=== PATIENT | female | born 2000 | race Caucasian/White ===

== ENCOUNTER 2022-03-23 14:25 | Emergency (ER) | payer MEDICAID, SELFPAY ==
--- NOTE | ~2022-03-23 | XR_ITS ---
EXAMINATION: XR CHEST CLINICAL INFORMATION: Chest pain. Shortness of breath. COMPARISON: None TECHNIQUE: 2 views of the chest were obtained. FINDINGS: No significant abnormality is noted involving the heart, lungs, mediastinum, bony thorax or soft tissues. XR/XR chest 2V IMPRESSION: Unremarkable examination.
[2022-03-23 15:20] VITALS: BP 129/80; PULSE 123; RESP 20; TEMP 36.8; O2SAT 98; BMI 32.9
--- NOTE | 2022-03-23 15:20 | ECG_ITS ---
Test Reason : tacycadic Blood Pressure : / mmHG Vent. Rate : 130 BPM Atrial Rate : 130 BPM P-R Int : 130 ms QRS Dur : 076 ms QT Int : 302 ms P-R-T Axes : 054 013 000 degrees QTc Int : 444 ms Sinus tachycardia Possible Left atrial enlargement Borderline ECG No previous ECGs available Referred By: María Hernandez Electronically Signed By:HENRY GUNN
--- NOTE | 2022-03-23 15:21 | ED_ITS ---
HPI - URI/Sore Throat General Chief Complaint: Upper Respiratory Symptoms <María Hernandez CNP - Last Filed: 03/23/22 18:01> Stated Complaint: chest pain <María Hernandez CNP - Last Filed: 03/23/22 18:01> Time Seen by Provider: 03/23/22 17:52 <María Hernandez CNP - Last Filed: 03/23/22 18:01> Source: patient <Aissatou Prather MD - Last Filed: 03/23/22 21:55> Mode of arrival: ambulatory <Aissatou Prather MD - Last Filed: 03/23/22 21:55> Limitations: no limitations <Aissatou Prather MD - Last Filed: 03/23/22 21:55> History of Present Illness HPI Narrative: Patient comes in the emergency room complaining of fatigue, cough and reproducible chest discomfort to cough and deep inspiration, fevers with T max 101. Symptoms have been present for 4-5 days. <Aissatou Prather MD - Last Filed: 03/23/22 21:55> Related Data Home Medications: Previous Rx's Medication Instructions Recorded benzonatate 100 mg capsule 100 mg PO TID PRN cough #14 caps 03/23/22 <María Hernandez CNP - Last Filed: 03/23/22 18:01> Allergies/Adverse Reactions: Allergies Allergy/AdvReac Type Severity Reaction Status Date / Time No Known Allergies Allergy Unverified 12/03/19 17:21 <María Hernandez CNP - Last Filed: 03/23/22 18:01> Review of Systems Review of Systems: Constitutional : No Weight loss, complaining of fever and chills, No Night Sweats, No Fatigue, No Malaise ENT/Mouth : No Hearing loss, No Ear Pain, No Nasal Congestion, No Sinus Pain, No Hoarseness, complaining of sore throat, No Rhinorrhea, No Swallowing Difficulty Eyes: No Eye Pain, No Swelling, No Redness, No Foreign Body, No Discharge, No Vision Changes Cardiovascular : No Chest Pain, No SOB, No Dyspnea on Exertion, No Orthopnea, No Edema, No Palpitations Respiratory : Complaining of Cough, No Sputum, No Wheezing, No Smoke Exposure, No Dyspnea Gastrointestinal : No Nausea, No Vomiting, No Diarrhea, No Constipation, No abdominal Pain, No Hematochezia, No Melena Genitourinary : no irregular bleeding, No Dysuria, No Urinary Frequency, No Hematuria, No Urinary Incontinence, No Urgency, No Flank Pain, No Urinary Flow Changes, No Hesitancy Musculoskeletal : No joint pain, No Myalgias, No Joint Swelling Skin : No Skin Lesions, No rash Neuro : No Weakness, No Numbness, No Paresthesias, No Loss of Consciousness, No Dizziness, No Headache Psych : No Anxiety/Panic, No Depression, No SI/HI/AH/VH, No Social Issues, Heme/Lymph: No Bruising, No Bleeding,No Lymphadenopathy Endocrine : No Polyuria, No Polydipsia, No Temperature Intolerance <Aissatou Prather MD - Last Filed: 03/23/22 21:55> [facility] Social History Social History: Social History Advance Directives: No Advance Directives Information Provided: Yes <María Hernandez CNP - Last Filed: 03/23/22 18:01> Physical Exam Vital Signs: Vital Signs: Last Vital Signs Temp 97.7 F 03/23/22 17:52 Pulse 119 H 03/23/22 17:52 Resp 20 03/23/22 17:52 BP 123/85 03/23/22 17:52 Pulse Ox 98 03/23/22 17:52 O2 Del Method 03/23/22 17:52 BMI result Body Mass Index 32.9 <María Hernandez CNP - Last Filed: 03/23/22 18:01> Vital Signs: Last Vital Signs Temp 97.7 F 03/23/22 17:52 Pulse 119 H 03/23/22 17:52 Resp 20 03/23/22 17:52 BP 123/85 03/23/22 17:52 Pulse Ox 98 03/23/22 17:52 O2 Del Method 03/23/22 17:52 BMI result Body Mass Index 32.9 <Aissatou Prather MD - Last Filed: 03/23/22 21:55> Const: Other: Appearance: Alert. Oriented X3. No acute distress. Eyes: Pupils equal, round and reactive to light. ENT: Pharynx Mildly erythematous, no exudates, no abscesses Neck: Normal inspection. Neck supple. No lymph nodes noted. No crepitus CVS: Normal heart rate and rhythm. Pulses normal. Normal S1 and S2 Respiratory: No respiratory distress. Breath sounds normal. No Wheezing. No rales Abdomen: Soft and nontender. No rigidity. No distention. Skin: Skin warm and dry. Normal skin color. Normal skin turgor. Extremities: No lower extremity edema. No Lacerations. No Rash Neuro: Oriented X 3. No motor deficit. No sensory deficit. Moving all extremities. No slurred speech. CN 2 through 12 grossly intact Psych: calm, cooperative, normal affect <Aissatou Prather MD - Last Filed: 03/23/22 21:55> Course Course Course Narrative: This is an RME: Additional HPI, ROS, PE not included below will be deferred to primary provider. Patient is a 21-year-old female who presents to the emergency department for evaluation of upper respiratory symptoms. She reports Symptom onset was 4 days ago. Initially with fatigue, followed by cough and reproducible chest discomfort to cough and deep inspiration, fevers with T max 101. She reports chest pain described as heaviness, like someone is sitting on her chest, with shortness of breath and difficulty breathing. PE: LSCTA, tachycardia 120 Plan: Labs, EKG, chest x-ray, viral testing. 17:55 - remains tachycardic, no respiratory distress continues to report heaviness to chest, described as intense pressure, that she reports is worsening since arrival. D-dimer added for further evaluation for PE, though I have a lower suspicion for this, suspect tachycardia is secondary to viral upper respiratory infection. <María Hernandez CNP - Last Filed: 03/23/22 18:01> This is an RME: Additional HPI, ROS, PE not included below will be deferred to primary provider. Patient is a 21-year-old female who presents to the emergency department for evaluation of upper respiratory symptoms. She reports Symptom onset was 4 days ago. Initially with fatigue, followed by cough and reproducible chest discomfort to cough and deep inspiration, fevers with T max 101. She reports chest pain described as heaviness, like someone is sitting on her chest, with shortness of breath and difficulty breathing. PE: LSCTA, tachycardia 120 Plan: Labs, EKG, chest x-ray, viral testing. 17:55 - remains tachycardic, no respiratory distress continues to report heaviness to chest, described as intense pressure, that she reports is worsening since arrival. D-dimer added for further evaluation for PE, though I have a lower suspicion for this, suspect tachycardia is secondary to viral upper respiratory infection. Patient receive IV fluids <Aissatou Prather MD - Last Filed: 03/23/22 21:55> Medical Decision Making Medical Decision Making [facility] Narrative: Patient tested negative for COVID and influenza. Troponin negative, D- dimer negative. Chest x-ray negative. Patient likely having a viral infection. Patient given IV fluids, Decadron p.o., viscous lidocaine. <Aissatou Prather MD - Last Filed: 03/23/22 21:55> Differential Diagnosis Differential Diagnoses: The differential diagnosis associated with the presentation includes (COVID, influenza, bronchitis, pneumonia) <Aissatou Prather MD - Last Filed: 03/23/22 21:55> Lab Data [facility] Lab Attestation statement: I reviewed the patient's lab results. <Aissatou Prather MD - Last Filed: 03/23/22 21:55> Result Diagrams: 03/23/22 15:40 03/23/22 15:40 <María Hernandez CNP - Last Filed: 03/23/22 18:01> Labs: Lab Results 03/23/22 03/23/22 03/23/22 Range/Units 15:35 15:35 15:40 WBC 13.5 H (4.8-10.8) X10*3/uL RBC 5.17 (4.20-5.50) X10*6/uL Hgb 13.8 (12.0-16.0) g/dl Hct 41.9 (37.0-47.0) % MCV 81.0 (80.0-98.0) fL MCH 26.7 L (27.0-33.0) pg MCHC 32.9 (31.0-35.0) g/dl RDW 12.8 (11.0-16.0) % Plt Count 241 (160-400) X10*3/uL MPV 10.9 (9.4-12.3) fL Immature Gran % (Auto) 0.2 (0.0-0.4) % Neut % (Auto) 73.8 H (45-73) % Lymph % (Auto) 15.9 L (20-40) % [place] % (Auto) 9.5 (2-11) % Eos % (Auto) 0.5 (0-4) % Baso % (Auto) 0.1 (0-2) % Lymph # (Auto) 2.2 (1.2-4.9) X10*3/uL [place] # (Auto) 1.3 H (0.1-1.2) X10*3/uL Eos # (Auto) 0.1 (0.0-0.4) X10*3/uL Baso # (Auto) 0.0 (0.0-0.2) X10*3/uL Abs Immat Gran (auto) 0.03 (0.00-0.03) X10*3/uL Absolute Neuts (auto) 10.0 H (2.0-8.3) x10*3/uL Absolute Nucleated RBC 0.000 (0.0-0.012) X10*3/uL Nucleated RBC % (auto) 0.0 (0.0-0.2) /100WBC PT (10.0-13.1) SEC INR (0.9-1.1) D-Dimer High Sensitivty NG/ML Sodium (135-145) mmol/L Potassium (3.3-5.1) mmol/L Chloride (96-108) mmol/L Carbon Dioxide (22-29) mmol/L Anion Gap (12-20) BUN (9-16) mg/dL Creatinine (0.5-1.4) mg/dL Estim Creat Clear Calc Estimated GFR Random Glucose (60-115) mg/dL Calcium (8.4-10.2) mg/dL Total Bilirubin (0.0-1.0) mg/dL AST (5-31) U/L ALT (0-31) U/L Alkaline Phosphatase (39-117) U/L Troponin I High Sens (<3.5-17.0) ng/L Total Protein (6.5-8.0) g/dL Albumin (3.5-5.0) g/dL COVID-19 ([facility]) Negative (Negative) COVID-19 Clin Com See Note Influenza Type A ([facility]) Negative (Negative) Influenza Type B ([facility]) Negative (Negative) Influenza A & B Note See Note 0103/23/22 03/23/22 Range/Units 15:40 15:40 15:40 WBC (4.8-10.8) X10*3/uL RBC (4.20-5.50) X10*6/uL Hgb (12.0-16.0) g/dl Hct (37.0-47.0) % MCV (80.0-98.0) fL MCH (27.0-33.0) pg MCHC (31.0-35.0) g/dl RDW (11.0-16.0) % Plt Count (160-400) X10*3/uL MPV (9.4-12.3) fL Immature Gran % (Auto) (0.0-0.4) % Neut % (Auto) (45-73) % Lymph % (Auto) (20-40) % [place] % (Auto) (2-11) % Eos % (Auto) (0-4) % Baso % (Auto) (0-2) % Lymph # (Auto) (1.2-4.9) X10*3/uL [place] # (Auto) (0.1-1.2) X10*3/uL Eos # (Auto) (0.0-0.4) X10*3/uL Baso # (Auto) (0.0-0.2) X10*3/uL Abs Immat Gran (auto) (0.00-0.03) X10*3/uL Absolute Neuts (auto) (2.0-8.3) x10*3/uL Absolute Nucleated RBC (0.0-0.012) X10*3/uL Nucleated RBC % (auto) (0.0-0.2) /100WBC PT 13.7 H (10.0-13.1) SEC INR 1.2 H (0.9-1.1) D-Dimer High Sensitivty < 150 NG/ML Sodium 138 (135-145) mmol/L Potassium 4.5 (3.3-5.1) mmol/L Chloride 101 (96-108) mmol/L Carbon Dioxide 26 (22-29) mmol/L Anion Gap 16 (12-20) BUN 8 L (9-16) mg/dL Creatinine 0.68 (0.5-1.4) mg/dL Estim Creat Clear Calc 147.3 Estimated GFR > 60 Random Glucose 88 (60-115) mg/dL Calcium 9.6 (8.4-10.2) mg/dL Total Bilirubin 0.7 (0.0-1.0) mg/dL AST 13 (5-31) U/L ALT 14 (0-31) U/L Alkaline Phosphatase 89 (39-117) U/L Troponin I High Sens < 3.5 (<3.5-17.0) ng/L Total Protein 7.7 (6.5-8.0) g/dL Albumin 4.7 (3.5-5.0) g/dL COVID-19 ([facility]) (Negative) COVID-19 Clin Com Influenza Type A ([facility]) (Negative) Influenza Type B ([facility]) (Negative) Influenza A & B Note <María Hernandez, [employer] - Last Filed: 03/23/22 18:01> Lab Results 03/23/22 03/23/22 03/23/22 Range/Units 15:35 15:35 15:40 WBC 13.5 H (4.8-10.8) X10*3/uL RBC 5.17 (4.20-5.50) X10*6/uL Hgb 13.8 (12.0-16.0) g/dl Hct 41.9 (37.0-47.0) % MCV 81.0 (80.0-98.0) fL MCH 26.7 L (27.0-33.0) pg MCHC 32.9 (31.0-35.0) g/dl RDW 12.8 (11.0-16.0) % Plt Count 241 (160-400) X10*3/uL MPV 10.9 (9.4-12.3) fL Immature Gran % (Auto) 0.2 (0.0-0.4) % Neut % (Auto) 73.8 H (45-73) % Lymph % (Auto) 15.9 L (20-40) % [place] % (Auto) 9.5 (2-11) % Eos % (Auto) 0.5 (0-4) % Baso % (Auto) 0.1 (0-2) % Lymph # (Auto) 2.2 (1.2-4.9) X10*3/uL [place] # (Auto) 1.3 H (0.1-1.2) X10*3/uL Eos # (Auto) 0.1 (0.0-0.4) X10*3/uL Baso # (Auto) 0.0 (0.0-0.2) X10*3/uL Abs Immat Gran (auto) 0.03 (0.00-0.03) X10*3/uL Absolute Neuts (auto) 10.0 H (2.0-8.3) x10*3/uL Absolute Nucleated RBC 0.000 (0.0-0.012) X10*3/uL Nucleated RBC % (auto) 0.0 (0.0-0.2) /100WBC PT (10.0-13.1) SEC INR (0.9-1.1) D-Dimer High Sensitivty NG/ML Sodium (135-145) mmol/L Potassium (3.3-5.1) mmol/L Chloride (96-108) mmol/L Carbon Dioxide (22-29) mmol/L Anion Gap (12-20) BUN (9-16) mg/dL Creatinine (0.5-1.4) mg/dL Estim Creat Clear Calc Estimated GFR Random Glucose (60-115) mg/dL Calcium (8.4-10.2) mg/dL Total Bilirubin (0.0-1.0) mg/dL AST (5-31) U/L ALT (0-31) U/L Alkaline Phosphatase (39-117) U/L Troponin I High Sens (<3.5-17.0) ng/L Total Protein (6.5-8.0) g/dL Albumin (3.5-5.0) g/dL COVID-19 ([facility]) Negative (Negative) COVID-19 Clin Com See Note Influenza Type A ([facility]) Negative (Negative) Influenza Type B ([facility]) Negative (Negative) Influenza A & B Note See Note 03/23/22 03/23/22 03/23/22 Range/Units 15:40 15:40 15:40 WBC (4.8-10.8) X10*3/uL RBC (4.20-5.50) X10*6/uL Hgb (12.0-16.0) g/dl Hct (37.0-47.0) % MCV (80.0-98.0) fL MCH (27.0-33.0) pg MCHC (31.0-35.0) g/dl RDW (11.0-16.0) % Plt Count (160-400) X10*3/uL MPV (9.4-12.3) fL Immature Gran % (Auto) (0.0-0.4) % Neut % (Auto) (45-73) % Lymph % (Auto) (20-40) % [place] % (Auto) (2-11) % Eos % (Auto) (0-4) % Baso % (Auto) (0-2) % Lymph # (Auto) (1.2-4.9) X10*3/uL [place] # (Auto) (0.1-1.2) X10*3/uL Eos # (Auto) (0.0-0.4) X10*3/uL Baso # (Auto) (0.0-0.2) X10*3/uL Abs Immat Gran (auto) (0.00-0.03) X10*3/uL Absolute Neuts (auto) (2.0-8.3) x10*3/uL Absolute Nucleated RBC (0.0-0.012) X10*3/uL Nucleated RBC % (auto) (0.0-0.2) /100WBC PT 13.7 H (10.0-13.1) SEC INR 1.2 H (0.9-1.1) D-Dimer High Sensitivty < 150 NG/ML Sodium 138 (135-145) mmol/L Potassium 4.5 (3.3-5.1) mmol/L Chloride 101 (96-108) mmol/L Carbon Dioxide 26 (22-29) mmol/L Anion Gap 16 (12-20) BUN 8 L (9-16) mg/dL Creatinine 0.68 (0.5-1.4) mg/dL Estim Creat Clear Calc 147.3 Estimated GFR > 60 Random Glucose 88 (60-115) mg/dL Calcium 9.6 (8.4-10.2) mg/dL Total Bilirubin 0.7 (0.0-1.0) mg/dL AST 13 (5-31) U/L ALT 14 (0-31) U/L Alkaline Phosphatase 89 (39-117) U/L Troponin I High Sens < 3.5 (<3.5-17.0) ng/L Total Protein 7.7 (6.5-8.0) g/dL Albumin 4.7 (3.5-5.0) g/dL COVID-19 ([facility]) (Negative) COVID-19 Clin Com Influenza Type A ([facility]) (Negative) Influenza Type B ([facility]) (Negative) Influenza A & B Note <Aissatou Prather MD - Last Filed: 03/23/22 21:55> Independent Interpretation I performed an independent interpretation of an: Plain X-Ray (My interpretation: No infiltrates present) <Aissatou Prather MD - Last Filed: 03/23/22 21:55> Radiology Impression Discussion of test interpretation with radiology: I have reviewed the radiologist's reading. <Aissatou Prather MD - Last Filed: 03/23/22 21:55> Radiologist Impression: FINDINGS: No significant abnormality is noted involving the heart, lungs, mediastinum, bony thorax or soft tissues. XR/XR chest 2V IMPRESSION: Unremarkable examination. <Aissatou Prather MD - Last Filed: 03/23/22 21:55> Discharge Plan Discharge Clinical Impression: Acute viral bronchitis <María Hernandez CNP - Last Filed: 03/23/22 18:01> Patient Disposition: Home, Self-Care <María Hernandez CNP - Last Filed: 03/23/22 18:01> Instructions: Acute Bronchitis (ED) <María Hernandez CNP - Last Filed: 03/23/22 18:01> Additional Instructions: Please follow-up with your primary care physician tomorrow. If you have any worsening or new symptoms, please return to the emergency room or call 911 <María Hernandez CNP - Last Filed: 03/23/22 18:01> Prescriptions: New benzonatate 100 mg capsule 100 mg PO TID PRN (Reason: cough) Qty: 14 0RF <María Hernandez CNP - Last Filed: 03/23/22 18:01> Stand Alone Forms: Work/School Release <María Hernandez CNP - Last Filed: 03/23/22 18:01> Interventions: LWBS Worksheet Last Done: 03/23/22 17:43 <María Hernandez CNP - Last Filed: 03/23/22 18:01>
[2022-03-23 15:45] LABS: MANUAL DIFF FLAG NO
[2022-03-23 15:59] LABS: Basophils Percent Auto 0.1 % (0-2); Eosinophils Absolute Auto 0.1 X10*3/uL (0.0-0.4); Eosinophils Percent Auto 0.5 % (0-4); Hematocrit 41.9 % (37.0-47.0); Hemoglobin 13.8 g/dl (12.0-16.0); Imm Gran Abs Auto 0.03 X10*3/uL (0.00-0.03); Imm Gran Pct Auto 0.2 % (0.0-0.4); Lymphocytes Absolute Auto 2.2 X10*3/uL (1.2-4.9); Lymphocytes Percent Auto 15.9 % (20-40); Mean Corpuscular HGB Conc 32.9 g/dl (31.0-35.0); Mean Corpuscular Hemoglobin 26.7 pg (27.0-33.0); Mean Platelet Volume 10.9 fL (9.4-12.3); Monocytes Absolute Auto 1.3 X10*3/uL (0.1-1.2); Monocytes Percent Auto 9.5 % (2-11); Neutrophils Percent Auto 73.8 % (45-73); Platelet Count 241 X10*3/uL (160-400); Red Blood Count 5.17 X10*6/uL (4.20-5.50); Red Cell Distribution Width 12.8 % (11.0-16.0); White Blood Count 13.5 X10*3/uL (4.8-10.8)
[2022-03-23 16:00] LABS: INTERNATIONAL NORM RATIO 1.2 (0.9-1.1); Prothrombin Time 13.7 SEC (10.0-13.1)
[2022-03-23 16:12] LABS: Alanine Aminotransferase 14 U/L (0-31); Albumin Level 4.7 g/dL (3.5-5.0); Alkaline Phosphatase 89 U/L (39-117); Anion Gap 16 (12-20); Aspartate Amino Transferase 13 U/L (5-31); Bilirubin Total 0.7 mg/dL (0.0-1.0); Blood Urea Nitrogen 8 mg/dL (9-16); Calcium 9.6 mg/dL (8.4-10.2); Carbon Dioxide 26 mmol/L (22-29); Chloride 101 mmol/L (96-108); Creatinine Clr Calc Pharmacy 147.3; Estimated Glomerular Filt Rate > 60; Glucose Random 88 mg/dL (60-115); Potassium 4.5 mmol/L (3.3-5.1); Sodium 138 mmol/L (135-145); Total Protein 7.7 g/dL (6.5-8.0)
[2022-03-23 16:16] LABS: COVID-19 Test Negative (Negative); IDNOW Serial# 16C4AD1C; IDNOW Serial# BCCEAD1C; Influenza A Negative (Negative); Influenza B2 Negative (Negative)
[2022-03-23 16:19] LABS: Troponin-I High Sensitivity < 3.5 ng/L (<3.5-17.0)
[2022-03-23 17:52] VITALS: BP 123/85; PULSE 119; RESP 20; TEMP 36.5; O2SAT 98
[2022-03-23 18:23] LABS: D Dimer High Sensitivity < 150 NG/ML
[2022-03-23] MEDS: dexAMETHasone 6 MG TABLET PO (21:53)
[2022-03-23] MEDS: Lidocaine HCl Viscous 2 % 15 ML SOLUTION MUCOUS MEM (21:53)
== END 2022-03-23 22:02 | disposition home or self-care (01) ==
PROVIDERS: Nurse Practitioner Family; Emergency Provider Emergency Medicine
DX: J20.8 Acute bronchitis due to other specified organisms (principal); R07.89 Other chest pain; R05.9 Cough, unspecified; R50.9 Fever, unspecified; Z20.822 Contact with and (suspected) exposure to COVID-19; Z79.899 Other long term (current) drug therapy
CPT/HCPCS: 36415; 71046; 80053; 84484; 85025; 85379; 85610; 87502; 87635; 93005; 99283; J8540

== ENCOUNTER 2023-07-30 12:27 | Outpatient (REF) | payer MEDICAID, SELFPAY ==
--- NOTE | ~2023-07-30 | XR_ITS ---
EXAMINATION: Bilateral knee series CLINICAL INFORMATION: Bilateral knee pain COMPARISON: X-rays of the right knee December 2018 TECHNIQUE: 4 views of each knee FINDINGS: Right knee: There is a small exostosis off the posterior aspect of the proximal metaphysis of the fibula unchanged compared to prior. The bones joints and soft tissues are normal without effusion. Left knee: The bones joints and soft tissues are normal without effusion. XR/XR knee LT 3V IMPRESSION: RIGHT KNEE: Small exostosis off the posterior aspect of the proximal fibula unchanged compared to prior. No acute abnormality or degenerative change. LEFT KNEE: Normal.
--- NOTE | ~2023-07-30 | XR_ITS ---
EXAMINATION: Bilateral knee series CLINICAL INFORMATION: Bilateral knee pain COMPARISON: X-rays of the right knee December 2018 TECHNIQUE: 4 views of each knee FINDINGS: Right knee: There is a small exostosis off the posterior aspect of the proximal metaphysis of the fibula unchanged compared to prior. The bones joints and soft tissues are normal without effusion. Left knee: The bones joints and soft tissues are normal without effusion. XR/XR knee RT 3V IMPRESSION: RIGHT KNEE: Small exostosis off the posterior aspect of the proximal fibula unchanged compared to prior. No acute abnormality or degenerative change. LEFT KNEE: Normal.
== END 2023-07-30 12:28 | disposition home or self-care (01) ==
LOC: HO.HHCX 12:27
PROVIDERS: Visit Provider Family Medicine
DX: M25.561 Pain in right knee (principal); M25.562 Pain in left knee; G89.29 Other chronic pain
CPT/HCPCS: 73562